=== PATIENT | female | born 1980 | race African-American/Black ===

== ENCOUNTER 2021-06-19 16:42 | Emergency (ER) | payer OTHER ==
[~2021-06-19] VITALS: Ht 177.8 cm; Wt 70.5 kg
[2021-06-19] MEDS ORDERED: HYDROcodone/APAP 5/325MG 1 TAB TABLET PO ONE (17:45)
[2021-06-19 17:53] VITALS: BP 105/63
--- NOTE | 2021-06-19 18:13 | RAD ---
EXAM: CT HEAD WITHOUT IV CONTRAST CLINICAL HISTORY: fall, headache, neck pain COMPARISON: None. TECHNIQUE: Routine CT of the head without contrast. Soft tissues and bone windows were reviewed. PQRS compliance statement - One or more of the following individualized dose reduction techniques wer e utilized for this study: 1. Automated exposure control 2. Adjustment of the mA and/or kV according to patient size 3. Use of iterative reconstruction technique FINDINGS: There is no evidence of hemorrhage, mass or extra-axial fluid collection. Blackwood-white differentiation is maintained with no evidence of edema. There is no mass effect or shift of the intracranial structures. The ventricles, basilar cisterns and cortical sulci are normal in size and configuration for the kelly ents stated age. The cerebellum and brainstem are unremarkable. The calvarium demonstrates no evidence of fracture or focal lesion. There is normal aeration of the visualized paranasal sinuses and mastoid air cells. The visualized portions of the orbits are normal. IMPRESSION: No evidence for acute intracranial process. EXAM: CT CERVICAL SPINE WITHOUT IV CONTRAST CLINICAL HISTORY: fall, headache, neck pain COMPARISON: None available. TECHNIQUE: Helical CT of the cervical spine was performed. Axial, coronal and sagittal reformatted im ages were also performed. PQRS compliance statement - One or more of the following individualized dose reduction techniques wer e utilized for this study: 1. Automated exposure control 2. Adjustment of the mA and/or kV according to patient size 3. Use of iterative reconstruction technique FINDINGS: Vertebral body heights are preserved. No acute fracture. No spondylolisthesis. Intervertebral disc heights are preserved. Straightening of the normal cervical lordosis. IMPRESSION: No acute cervical spine fracture or subluxation. Electronically signed by: Jaspal Wyman MD (06/19/2021 6:11 PM) [facility]IS[facility]
[2021-06-19] MEDS ORDERED: PROCHLORPERAZINE 10 MG/2 ML VIAL. IM ONE (18:15)
[2021-06-19] MEDS ORDERED: diphenhydrAMINE 50 MG/ML VIAL IM ONE (18:15)
--- NOTE | 2021-06-19 18:49 | PHYS DOC ---
Past History Past Surgical History: No Surgical History (RAHUL SAHNI APRN) Alcohol Use: None (RAHUL SAHNI APRN) General Adult EDM: Chief Complaint: MECHANICAL FALL HPI: HPI: Patient is a 40-year-old female who presents with headache and syncopal episode. Patient states that she was seen at urgent care for migraine. Patient was given Toradol and sent home with a prescription. Patient states when she got home she had a syncopal episode. Patient does not remember the fall and just remembers waking up on the floor. Denies being on blood thinners. Patient hit the back of her head. Patient states that her headache has increased. No visible trauma. History of migraines. (RAHUL SAHNI APRN) Review of Systems: Review of Systems: ROS At least 10 ROS systems have been reviewed and are negative except as documented in the HPI. General: Negative except as outlined in HPI above. Skin: Negative except as outlined in HPI above. HEENT: Negative except as outlined in HPI above. Neck: Negative except as outlined in HPI above. Respiratory: Negative except as outlined in HPI above.. Cardiovascular: Negative except as outlined in HPI above. Abdomen: Negative except as outlined in HPI above. : Negative except as outlined in HPI above. Back/MSK: Negative except as outlined in HPI above. Neuro: Negative except as outlined in HPI above. Psych: Negative except as outlined in HPI above. (RAHUL SAHNI APRN) Current Medications: Current Meds: Current Medications Medications (Trade) Dose Ordered Sig/Sander Start Time Stop Time Status Last Admin Dose Admin Acetaminophen/ Hydrocodone Bitart (Lortab 5/325) 1 tab 1X ONCE 06/19/21 17:45 06/19/21 17:46 DC 06/19/21 17:44 1 TAB Diphenhydramine HCl (Benadryl) 50 mg 1X ONCE 06/19/21 18:15 06/19/21 18:16 DC 06/19/21 18:15 50 MG Prochlorperazine Edisylate (Compazine) 10 mg 1X ONCE 06/19/21 18:15 06/19/21 18:16 DC 06/19/21 18:15 10 MG (RAHUL SAHNI APRN) Allergies: Allergies: Allergies Coded Allergies Type Severity Reaction Last Updated Verified No Known Drug Allergies 06/19/21 No (SAHNI,RAHUL HEEL COVER SPLITTER) Physical Exam: PE: Constitutional: Well developed, well nourished, no acute distress, non-toxic appearance. [] HENT: Normocephalic, atraumatic, bilateral external ears normal, oropharynx moist, no oral exudates, nose normal. [] Eyes: PERRLA, EOMI, conjunctiva normal, no discharge. [] Neck: Normal range of motion, no tenderness, supple, no stridor. [] Cardiovascular:Heart rate regular rhythm, no murmur [] Lungs & Thorax: Bilateral breath sounds clear to auscultation [] Abdomen: Bowel sounds normal, soft, no tenderness, no masses, no pulsatile masses. [] Skin: Warm, dry, no erythema, no rash. [] Back: No tenderness, no CVA tenderness. [] Extremities: No tenderness, no cyanosis, no clubbing, ROM intact, no edema. [] Neurologic: Alert and oriented X 3, normal motor function, normal sensory function, no focal deficits noted. [] Psychologic: Affect normal, judgement normal, mood normal. [] (RAHUL SAHNI HEEL COVER SPLITTER) Current Patient Data: Vital Signs: Vital Signs Date Time Temp Pulse Resp B/P (MAP) Pulse Ox O2 Delivery O2 Flow Rate FiO2 06/19/21 17:53 62 16 105/63 (77) 100 Room Air 06/19/21 16:45 98.2 (RAHUL SAHNI APRN) EKG: EKG: [] (RAHUL SAHNI APRN) Radiology/Procedures: Radiology/Procedures: []EXAM: CT HEAD WITHOUT IV CONTRAST CLINICAL HISTORY: fall, headache, neck pain COMPARISON: None. TECHNIQUE: Routine CT of the head without contrast. Soft tissues and bone windows were reviewed. PQRS compliance statement - One or more of the following individualized dose reduction techniques were utilized for this study: 1. Automated exposure control 2. Adjustment of the mA and/or kV according to patient size 3. Use of iterative reconstruction technique FINDINGS: There is no evidence of hemorrhage, mass or extra-axial fluid collection. Blackwood-white differentiation is maintained with no evidence of edema. There is no mass effect or shift of the intracranial structures. The ventricles, basilar cisterns and cortical sulci are normal in size and configuration for the patients stated age. The cerebellum and brainstem are unremarkable. The calvarium demonstrates no evidence of fracture or focal lesion. There is normal aeration of the visualized paranasal sinuses and mastoid air cells. The visualized portions of the orbits are normal. IMPRESSION: No evidence for acute intracranial process. EXAM: CT CERVICAL SPINE WITHOUT IV CONTRAST CLINICAL HISTORY: fall, headache, neck pain COMPARISON: None available. TECHNIQUE: Helical CT of the cervical spine was performed. Axial, coronal and sagittal reformatted images were also performed. PQRS compliance statement - One or more of the following individualized dose reduction techniques were utilized for this study: 1. Automated exposure control 2. Adjustment of the mA and/or kV according to patient size 3. Use of iterative reconstruction technique FINDINGS: Vertebral body heights are preserved. No acute fracture. No spondylolisthesis. Intervertebral disc heights are preserved. Straightening of the normal cervical lordosis. IMPRESSION: No acute cervical spine fracture or subluxation. Electronically signed by: Jaspal Guillen MD (06/19/2021 6:11 PM) [facility] DICTATED AND SIGNED BY: JASPAL GUILLEN MD DATE: 06/19/21 180 CC: RAHUL SAHNI APRN; DM ELIZABETH DO, MPH ~MTH0 0 (RAHUL SAHNI APRN) Heart Score: C/O Chest Pain: No Risk Factors: Risk Factors: DM, Current or recent (<one month) smoker, HTN, HLP, family history of CAD, obesity. Risk Scores: Score 0 - 3: 2.5% MACE over next 6 weeks - Discharge Home Score 4 - 6: 20.3% MACE over next 6 weeks - Admit for Clinical Observation Score 7 - 10: 72.7% MACE over next 6 weeks - Early Invasive Strategies (RAHUL SAHNI APRN) Course & Med Decision Making: Course & Med Decision Making Pertinent Labs and Imaging studies reviewed. (See chart for details) [] 40-year-old female presents with headache and syncopal episode. Work-up in ER consist of CT head and neck. Hydrocodone, Benadryl, Compazine. CT head and neck unremarkable. Patient's pain is improved. Patient to take medicine she was prescribed by her PCP as directed. Discussed return precautions in length. Patient states that she understands discharge instructions. Patient is alert and oriented and able to ambulate on her own all upon disposition. (RAHUL SAHNI APRN) Course & Med Decision Making Did not see or evaluate patient. Did not discuss patient with WORKFORCE DEVELOPMENT VICE PRESIDENT. Generally agree with WORKFORCE DEVELOPMENT VICE PRESIDENT's work-up and disposition per note (AGUILAR STANLEY MD) Dragon Disclaimer: Dragon Disclaimer: This electronic medical record was generated, in whole or in part, using a voice recognition dictation system. (RAHUL SAHNI APRN) Departure Departure: Impression: Primary Impression: Migraine Qualified Codes: G43.909 - Migraine, unspecified, not intractable, without status migrainosus Disposition: HOME / SELF CARE / HOMELESS Condition: STABLE Referrals: DM ELIZABETH DO, MPH (PCP) Patient Instructions: Migraine Headache, [id number] Additional Instructions: You are seen emergency room after a fall. We did a CT of your head and neck which were unremarkable. You were also treated with Benadryl, Compazine, hydrocodone for your pain. Please return to the emergency room if you have worsening symptoms or concerns such as altered mental status, uncontrollable vomiting, visual changes. Otherwise you can follow back up with your primary care physician. EMERGENCY DEPARTMENT GENERAL DISCHARGE INSTRUCTIONS Thank you for coming to [facility] (ED) today and trusting us with you care. We trust that you had a positivie experience in our Emergency Department. If you wish to speak to the department management, you may call the director at [phone]. YOUR FOLLOW UP INSTRUCTIONS ARE FOLLOWS: 1. Do you have a private Doctor? If you do not have a private doctor, please ask for a resource list of physicians or clinics that may be able to assist you with follow up care. 2. The Emergency Physician has interpreted your x-rays. The X-Ray specialist will also review them. If there is a change in the findings, you will be notified in 48 hours when at all possible. 3. A lab test or culture has been done, your results will be reviewed and you will be notified if you need a change in treatment. ADDITIONAL INSTRUCTIONS AND INFORMATION: 1. Your care today has been supervised by a physician who is specially trained in emergency care. Many problems require more than one evaluation for a complete diagnosis and treatment. We recommend that you schedule your follow up appointment as recommended to ensure complete treatment of you illness or injury. If you are unable to obtain follow up care and continue to have a problem, or if your condition worsens, we recommend that you return to the ED. 2. We are not able to safely determine your condition over the phone nor are we able to give sound medical advice over the phone. For these safety reasons, if you call for medical advice we will ask you to come to the ED for further evaluation. 3. If you have any questions regarding these discharge instructions please call the ED at [phone]. SAFETY INFORMATION: In the interest of safety, wellness, and injury prevention; we encourage you to wear your sealbelt, if you smoke; quite smoking, and we encourage family to use a protective helmet for bicycling and other sporting events that present an increased risk for head injury. IF YOUR SYMPTOMS WORSEN OR NEW SYMPTOMS DEVELOP, OR YOU HAVE CONCERNS ABOUT YOUR CONDITION; OR IF YOUR CONDITION WORSENS WHILE YOU ARE WAITING FOR YOUR FOLLOW UP APPOINTMENT; EITHER CONTACT YOUR PRIMARY CARE DOCTOR, THE PHYSICIAN WHOSE NAME AND NUMBER YOU WERE GIVEN, OR RETURN TO THE ED IMMEDIATELY. RAHUL SAHNI APRN Jun 19, 2021 18:49 AGUILAR STANLEY MD Jun 19, 2021 22:27
== END 2021-06-19 19:12 | disposition home or self-care (01) ==
LOC: ER 16:42
DX: G43.909 Migraine, unspecified, not intractable, without status migrainosus (principal); R55 Syncope and collapse
CPT/HCPCS: 70450; 72125; 96372; 99284; J0780; J1200

== ENCOUNTER 2021-09-08 18:32 | Emergency (ER) | payer OTHER ==
[~2021-09-08] VITALS: Ht 177.8 cm; Wt 76.4 kg
[2021-09-08] MEDS ORDERED: IV NORMAL SALINE 1,000ML 1,000 ML IV SCH (18:45)
[2021-09-08] MEDS ORDERED: MORPHINE SULFATE 2 MG/ML DISP.SYRIN. IV ONE ×2 (18:45→20:45)
--- NOTE | 2021-09-08 18:54 | PHYS DOC ---
Past History Past Surgical History: No Surgical History Alcohol Use: None General Adult EDM: Chief Complaint: CHEST PAIN HPI: HPI: Patient is a 40-year-old female who presents to the emergency department for right-sided chest pain that radiates to her right arm with arm tingling that started 1 hour prior to arrival. Patient reports that she was walking around [employer] when the pain started. She reports shortness of breath and feels like the room is spinning. She ports a mild headache. She does have a history of migraine headaches but states this does not feel as severe as her typical migraine headaches. She denies any nausea, vomiting. She is not a current smoker. Review of Systems: Review of Systems: Constitutional: Denies fever or chills Respiratory: See HPI, denies cough Cardiovascular: See HPI GI: See HPI Neurologic: See HPI Current Medications: Current Meds: Current Medications Medications (Trade) Dose Ordered Sig/Sander Start Time Stop Time Status Last Admin Dose Admin Morphine Sulfate (Morphine 2mg Syringe) 2 mg 1X ONCE 09/08/21 18:45 09/08/21 18:46 UNV Sodium Chloride 1,000 ml @ 1,000 mls/hr Q1H 09/08/21 18:45 09/08/21 19:44 UNV Allergies: Allergies: Allergies Coded Allergies Type Severity Reaction Last Updated Verified No Known Drug Allergies 06/19/21 No Physical Exam: PE: Constitutional: Well developed, well nourished, no acute distress, non-toxic appearance. [] HENT: Normocephalic, atraumatic, bilateral external ears normal, oropharynx moist, no oral exudates, nose normal. [] Eyes: PERRL, EOMI, conjunctiva normal, no discharge. [] Neck: Normal range of motion, no tenderness, supple, no stridor. [] Cardiovascular:Heart rate regular rhythm, no murmur, right chest wall tenderness with palpation [] Lungs & Thorax: Bilateral breath sounds clear to auscultation [] Abdomen: Bowel sounds normal, soft, no tenderness, no masses, no pulsatile masses. [] Skin: Warm, dry, no erythema, no rash. [] Back: No tenderness, normal range of motion Extremities: No tenderness, no cyanosis, no clubbing, ROM intact, no edema. [] Neurologic: Alert and oriented X 3, normal motor function, normal sensory function, no focal deficits noted. [] Psychologic: Affect normal, judgement normal, mood normal. [] Current Patient Data: Labs: Laboratory Tests Test 09/08/21 19:27 09/08/21 19:44 White Blood Count 5.3 x10^3/uL Red Blood Count 4.13 x10^6/uL Hemoglobin 11.9 g/dL Hematocrit 36.5 % Mean Corpuscular Volume 89 fL Mean Corpuscular Hemoglobin 29 pg Mean Corpuscular Hemoglobin Concent 33 g/dL Red Cell Distribution Width 13.9 % Platelet Count 226 x10^3/uL Neutrophils (%) (Auto) 48 % Lymphocytes (%) (Auto) 40 % Monocytes (%) (Auto) 9 % Eosinophils (%) (Auto) 1 % Basophils (%) (Auto) 1 % Neutrophils # (Auto) 2.5 x10^3uL Lymphocytes # (Auto) 2.1 x10^3/uL Monocytes # (Auto) 0.5 x10^3/uL Eosinophils # (Auto) 0.1 x10^3/uL Basophils # (Auto) 0.1 x10^3/uL Sodium Level 138 mmol/L Potassium Level 3.9 mmol/L Chloride Level 103 mmol/L Carbon Dioxide Level 28 mmol/L Anion Gap 7 Blood Urea Nitrogen 11 mg/dL Creatinine 1.0 mg/dL Estimated GFR (Cockcroft-Gault) 74.7 BUN/Creatinine Ratio 11 Glucose Level 83 mg/dL Calcium Level 9.4 mg/dL Total Bilirubin 0.3 mg/dL Aspartate Amino Transf (AST/SGOT) 17 U/L Alanine Aminotransferase (ALT/SGPT) 28 U/L Alkaline Phosphatase 57 U/L Troponin I High Sensitivity 7 ng/L Total Protein 7.0 g/dL Albumin 3.7 g/dL Albumin/Globulin Ratio 1.1 Bedside Urine HCG, Qualitative hcg negative Current Medications Medications (Trade) Dose Ordered Sig/Sander Route PRN Reason Start Time Stop Time Status Last Admin Dose Admin Morphine Sulfate (Morphine 2mg Syringe) 2 mg 1X ONCE IV 09/08/21 18:45 09/08/21 18:58 DC 09/08/21 19:13 Sodium Chloride 1,000 ml @ 1,000 mls/hr Q1H IV 09/08/21 18:45 09/08/21 19:44 DC 09/08/21 19:13 Morphine Sulfate (Morphine 2mg Syringe) 2 mg 1X ONCE IV 09/08/21 20:45 09/08/21 20:46 EKG: EKG: [] EKG performed by ER staff at 1904 shows sinus rhythm with a rate of 55, no S IZABELLA read by Dr. Abdul at 191 Radiology/Procedures: Radiology/Procedures: []PROCEDURE: PORTABLE CHEST 1V XR CHEST 1V History: Reason: chest pain / Comparison: None. Findings: No consolidation or pleural effusion. Normal heart size. No pneumothorax. Impression: 1. No acute cardiopulmonary process. Electronically signed by: Demetrius Lopez DO (09/08/2021 7:36 PM) [facility] DICTATED AND SIGNED BY: DEMETRIUS LOPEZ DO DATE: 09/08/211934 CC: MELINA BILL APRN; DM ELIZABETH DO, MPH ~ Heart Score: C/O Chest Pain: Yes HEART Score for Chest Pain: HEART Score for Chest Pain Response (Comments) Value History Moderately Suspicious 1 ECG Normal 0 Age < 45 0 Risk Factors No Risk Factors 0 Troponin < Normal Limit 0 Total 1 Risk Factors: Risk Factors: DM, Current or recent (<one month) smoker, HTN, HLP, family history of CAD, obesity. Risk Scores: Score 0 - 3: 2.5% MACE over next 6 weeks - Discharge Home Score 4 - 6: 20.3% MACE over next 6 weeks - Admit for Clinical Observation Score 7 - 10: 72.7% MACE over next 6 weeks - Early Invasive Strategies Course & Med Decision Making: Course & Med Decision Making Pertinent Labs and Imaging studies reviewed. (See chart for details) [] Patient presents to the emergency department for right-sided chest pain that radiates to her right arm with right arm tingling. Patient is also reporting shortness of breath and feeling the room was spinning. Work-up in the ER consisted of blood work including troponin, EKG and chest x-ray. Patient to be treated with IV fluids and pain medication. Patient's blood work is unremarkable, she has a negative troponin. Chest x-ray negative for any acute findings. Patient had a repeat troponin which was also negative. Patient's heart score is 1. Patient reports following treatment in the emergency department her symptoms have improved. Patient's chest pain is likely musculoskeletal in nature as it is reproducible with palpation. Patient's vital signs are stable. Patient advised to take Tylenol and ibuprofen at home for her pain and follow-up with her primary care provider. She was given referral information for skin washer. I discussed with patient all findings and diagnostic testing as well as the need to follow-up with PCP for further evaluation and treatment or return to the ER if any new or worsening symptoms. Strict return precautions were also discussed at length. Patient voiced understanding and agreement with the plan. Patient is hemodynamically stable at the time of disposition. Dragon Disclaimer: Dragon Disclaimer: This electronic medical record was generated, in whole or in part, using a voice recognition dictation system. Departure Departure: Impression: Primary Impression: Atypical chest pain Disposition: HOME / SELF CARE / HOMELESS Condition: GOOD Referrals: DM ELIZABETH DO, MPH (PCP) YOBANI LEIGH MD Patient Instructions: Chest Pain (Nonspecific), Chest Wall Pain, [id number] Additional Instructions: You were seen in the emergency department today for chest pain. At this time, does not appear that you are experiencing acute coronary syndrome. It is possible that your pain is musculoskeletal in nature as it is worse with movement and reproduced with palpation. You can take Tylenol and ibuprofen at home for your pain. Rest. Follow-up with your primary care provider on Thursday regarding your ER visit. You may need to follow-up with a skin washer in 1 was attached to this discharge paperwork, please contact his skin washer on Thursday to set up a follow-up appointment. Return to the emergency department if you develop worsening of your chest pain, high fevers refractory to treatment, syncope, intractable nausea or vomiting. MELINA BILL GOLF BALL MARKER September 08, 2021 18:54
--- NOTE | 2021-09-08 19:38 | RAD ---
XR CHEST 1V History: Reason: chest pain / Comparison: None. Findings: No consolidation or pleural effusion. Normal heart size. No pneumothorax. Impression: 1. No acute cardiopulmonary process. Electronically signed by: Demetrius Burdick DO (09/08/2021 7:36 PM) [facility]
[2021-09-08 19:44] LABS: BASO # 0.1 x10^3/uL (0.0-0.2); BASO % 1 % (0-3); EOS # 0.1 x10^3/uL (0.0-0.7); EOS % 1 % (0-3); HEMATOCRIT 36.5 % (36.0-47.0); HEMOGLOBIN 11.9 g/dL (12.0-15.5); LYMPH # 2.1 x10^3/uL (1.0-4.8); LYMPH % 40 % (24-48); MEAN CORPUSCULAR HEMOGLOBIN 29 pg (25-35); MEAN CORPUSCULAR HGB CONC 33 g/dL (31-37); MEAN CORPUSCULAR VOLUME 89 fL (79-100); MONO # 0.5 x10^3/uL (0.0-1.1); MONO % 9 % (0-9); NEUT # 2.5 x10^3uL (1.8-7.7); NEUT % 48 % (31-73); PLATELET COUNT 226 x10^3/uL (140-400); RED BLOOD COUNT 4.13 x10^6/uL (3.50-5.40); RED CELL DISTRIBUTION WIDTH 13.9 % (11.5-14.5); WHITE BLOOD COUNT 5.3 x10^3/uL (4.0-11.0)
[2021-09-08 20:00] LABS: CALCIUM 9.4 mg/dL (8.5-10.1); GFR 74.7; POTASSIUM 3.9 mmol/L (3.5-5.1)
[2021-09-08 20:06] LABS: ALBUMIN 3.7 g/dL (3.4-5.0); ALBUMIN/GLOBULIN RATIO 1.1 (1.0-1.7); TOTAL BILIRUBIN 0.3 mg/dL (0.2-1.0)
[2021-09-08 21:05] VITALS: BP 106/69
== END 2021-09-08 22:05 | disposition home or self-care (01) ==
LOC: ER 18:32
DX: R07.89 Other chest pain (principal); G43.909 Migraine, unspecified, not intractable, without status migrainosus
CPT/HCPCS: 36415; 71045; 80053; 81025; 84484; 85025; 93005; 96361; 96374; 96376; 99285; J2270; J7030